=== PATIENT | male | born 1955 | race Two or more races ===

== ENCOUNTER 2020-10-31 05:25 | Day surgery (SDC) | payer OTHER | END 2020-10-31 10:00 | disposition home or self-care (01) | LOC: AMB-ENDOS 05:25 | PROVIDERS: ATTEND Surgery | DX: D12.2 Benign neoplasm of ascending colon (principal); K62.1 Rectal polyp; K64.8 Other hemorrhoids; Z20.822 Contact with and (suspected) exposure to COVID-19; Z12.11 Encounter for screening for malignant neoplasm of colon ==